=== PATIENT | male | born 1955 | race Two or more races ===

== ENCOUNTER 2017-05-04 16:15 | Inpatient (IN) | payer MEDICARE, OTHER ==
[~2017-05-04] VITALS: Ht 177.8 cm; Wt 89.0 kg
[2017-05-04] MEDS ORDERED: SODIUM CHLORIDE 0.9% 1,000 ML IVB ONE (16:55)
[2017-05-04] MEDS ORDERED: LORazepam 2MG/ML-1ML VIAL IV ONE (17:00)
[2017-05-04] MEDS ORDERED: diphenhdrAMINE HCL 50 MG/1 ML VL IV ONE (17:00)
[2017-05-04 18:24] LABS: Alanine Aminotransferase 14 U/L (16-61); Anion Gap 11 (5-15); Aspartate Aminotransferase 17 U/L (15-37); BUN/Creatinine Ratio 12.5; Blood Alcohol < 3.0 mg/dL (0-5); Blood Urea Nitrogen 38 mg/dL (7-18); Calcium 8.4 mg/dL (8.5-10.1); Carbon Dioxide 21 mmol/L (21-32); Chloride 107 mmol/L (98-107); GFR African American 27 mL/min; GFR Non-African American 22 mL/min; Glucose 74 mg/dL (74-106); Potassium 4.2 mmol/L (3.5-5.1); Sodium 139 mmol/L (136-145)
[2017-05-04 18:25] LABS: Basophils # (auto) 0 uL; Basophils % (auto) 0.4 % (0.0-2.0); Eosinophils # (auto) 0.1 uL; Hemoglobin 12.5 g/dL (13.5-17.5); Mean Corpuscular Hgb Conc. 33.7 g/dL (32.0-36.0); Monocytes # (auto) 0.2 uL; Monocytes % (auto) 4.9 % (0.0-12.0); Neutrophils # (auto) 2.7 uL; Red Cell Distribution Width 14.4 % (11.8-14.3); White Blood Cell 3.9 10^3/uL (4.4-10.8)
[2017-05-04 18:27] LABS: Alkaline Phosphatase 57 U/L (45-117); Bilirubin, Total 0.5 mg/dL (0.2-1.0); Eosinophils % (auto) 3.3 % (0.0-7.0); Lymphocytes # (auto) 0.9 uL; Lymphocytes % (auto) 21.7 % (10.0-50.0); Mean Corpuscular Hemoglobin 29.2 pg (28.0-32.0); Mean Corpuscular Volume 86.8 fL (80.0-100.0); Neutrophils % (auto) 69.7 % (37.0-80.0); Nucleated Red Blood Cells % 0.3 %; Platelet Count (auto) 28 10^3/uL (140-450); Red Blood Cells 4.27 10^6/uL (4.5-5.90); Total Protein 7.5 g/dL (6.4-8.2)
[2017-05-04 18:29] LABS: Salicylate < 1.7 mg/dL (2.8-20.0)
[2017-05-04 18:34] LABS: Acetaminophen < 2.0 ug/mL (10-30)
[2017-05-04 18:35] LABS: Blood Alcohol < 3.0 mg/dL (0-5); Magnesium 2.6 mg/dL (1.6-2.6)
[2017-05-04] MEDS ORDERED: SITA50TA28 PO (18:39)
[2017-05-04] MEDS ORDERED: CLOP75TA41 PO (18:39)
[2017-05-04] MEDS ORDERED: FURO40TA4 PO (18:39)
[2017-05-04] MEDS ORDERED: GABA300C10 PO (18:39)
[2017-05-04] MEDS ORDERED: POTA10TA51 PO (18:39)
[2017-05-04] MEDS ORDERED: LOSA50TA6 PO (18:39)
[2017-05-04] MEDS ORDERED: PANT40TA2 PO (18:39)
[2017-05-04] MEDS ORDERED: ALPR0.5T7 PO (18:39)
[2017-05-04] MEDS ORDERED: RIFA550T PO (18:39)
[2017-05-04] MEDS ORDERED: MORPHINE SULFATE 10 MG/ML INJ 1ML SDV IV PRN ×2 (19:00)
[2017-05-04] MEDS ORDERED: NITROGLYCERIN 0.4 MG SL TAB SL PRN (19:00)
[2017-05-04] MEDS: LACTULOSE 20Gm/30ML SOLN PO SCH ×2 (19:00→22:09)
[2017-05-04] MEDS ORDERED: DOCUSATE SOD 100 MG CAP PO PRN (19:00)
[2017-05-04] MEDS ORDERED: METOCLOPRAMIDE HCL 5MG/ml INJ 2ml VIAL IV PRN (19:00)
[2017-05-04] MEDS ORDERED: LORazepam 0.5 MG TAB PO PRN (19:00)
[2017-05-04] MEDS ORDERED: ALPRAZolam 0.5 MG TAB PO PRN (19:00)
[2017-05-04] MEDS ORDERED: HYDROcodone-ACET 5/325MG TAB PO PRN (19:00)
[2017-05-04] MEDS ORDERED: ONDANSETRON HCL 4 MG/2 ML VIAL IV PRN (19:00)
[2017-05-04] MEDS ORDERED: ALUM & MAG HYDROX-SIMETH LIQ(MAALOX) 30 ML PO PRN (19:00)
[2017-05-04] MEDS ORDERED: ACETAMINOPHEN 325 MG TAB PO PRN (19:00)
[2017-05-04 21:30] VITALS: BP 94/64
[2017-05-04] MEDS: GABAPENTIN 300 MG CAP PO SCH (22:09)
[2017-05-04] MEDS: RIFAXIMIN 550 MG TAB PO SCH (22:10)
[2017-05-04 22:20] VITALS: BP 94/64
[2017-05-05 04:43] VITALS: BP 106/64
[2017-05-05 05:08] LABS: Urine Bacteria None Seen /hpf (None Seen); Urine WBC None Seen /hpf (0 - 3)
[2017-05-05] MEDS: LACTULOSE 20Gm/30ML SOLN PO SCH ×3 (06:08→21:07)
[2017-05-05] MEDS: GABAPENTIN 300 MG CAP PO SCH ×3 (06:09→21:07)
[2017-05-05] MEDS: LOSARTAN POTASSIUM 50 MG TAB PO SCH (06:09)
[2017-05-05 06:33] LABS: Alcohol, Urine < 3.0 mg/dL (0-5); Amphetamine Screen, Urine NEGATIVE (NEGATIVE); Barbiturate Scree,Urine NEGATIVE (NEGATIVE); Benzodiazephine Screen, Urine POSITIVE (NEGATIVE); Cannabinoid Screen, Urine NEGATIVE (NEGATIVE); Cocaine Screen, Urine NEGATIVE (NEGATIVE); Opiate Scree,Urine POSITIVE (NEGATIVE); Phencyclidine Screen, Urine NEGATIVE (NEGATIVE)
[2017-05-05 08:00] VITALS: BP 121/82
[2017-05-05 08:06] LABS: Basophils # (auto) 0 uL; Eosinophils # (auto) 0.1 uL; Hemoglobin 12.3 g/dL (13.5-17.5); Lymphocytes # (auto) 0.9 uL; Monocytes # (auto) 0.4 uL; Nucleated Red Blood Cells % 0.2 %
[2017-05-05 08:08] LABS: Basophils % (auto) 0.2 % (0.0-2.0); Eosinophils % (auto) 1.4 % (0.0-7.0); Hematocrit 35.9 % (41.0-53.0); Lymphocytes % (auto) 13.8 % (10.0-50.0); Mean Corpuscular Hemoglobin 29.9 pg (28.0-32.0); Mean Corpuscular Hgb Conc. 34.3 g/dL (32.0-36.0); Mean Corpuscular Volume 87.3 fL (80.0-100.0); Monocytes % (auto) 5.6 % (0.0-12.0); Neutrophils # (auto) 5.2 uL; Platelet Count (auto) 27 10^3/uL (140-450); Red Blood Cells 4.12 10^6/uL (4.5-5.90); Red Cell Distribution Width 14.3 % (11.8-14.3); White Blood Cell 6.6 10^3/uL (4.4-10.8)
[2017-05-05 08:46] LABS: BUN/Creatinine Ratio 15.1; Bilirubin, Total 0.9 mg/dL (0.2-1.0); Calcium 8.4 mg/dL (8.5-10.1); Potassium 4.3 mmol/L (3.5-5.1); Total Protein 7.2 g/dL (6.4-8.2)
[2017-05-05 09:01] LABS: Urine Specific Gravity 1.014 (1.001-1.035)
[2017-05-05 09:02] LABS: Urine Blood Negative /uL (Negative)
[2017-05-05] MEDS: RIFAXIMIN 550 MG TAB PO SCH (10:00)
[2017-05-05] MEDS: POTASSIUM CHL 20 Meq TABLET PO SCH (10:58)
[2017-05-05] MEDS: CLOPIDOGREL BISULFATE 75 MG TAB PO SCH (10:59)
[2017-05-05] MEDS: PANTOPRAZOLE 40 MG TAB PO SCH (10:59)
[2017-05-05] MEDS: FUROSEMIDE 40 MG TAB PO SCH (11:02)
[2017-05-05 20:00] VITALS: BP 95/66
[2017-05-05 22:02] VITALS: BP 95/66
[2017-05-06 05:00] VITALS: BP 97/60
[2017-05-06] MEDS: LACTULOSE 20Gm/30ML SOLN PO SCH ×3 (06:19→21:35)
[2017-05-06] MEDS: LOSARTAN POTASSIUM 50 MG TAB PO SCH (06:19)
[2017-05-06] MEDS: GABAPENTIN 300 MG CAP PO SCH ×3 (06:20→21:35)
[2017-05-06 09:00] VITALS: BP 97/62
[2017-05-06] MEDS: CLOPIDOGREL BISULFATE 75 MG TAB PO SCH (10:18)
[2017-05-06] MEDS: PANTOPRAZOLE 40 MG TAB PO SCH (10:18)
[2017-05-06] MEDS: POTASSIUM CHL 20 Meq TABLET PO SCH (10:18)
[2017-05-06] MEDS: FUROSEMIDE 40 MG TAB PO SCH (10:19)
[2017-05-06] MEDS ORDERED: HYDR-4683 PO (11:22)
[2017-05-06] MEDS ORDERED: MORP1TAB12 PO (11:22)
[2017-05-06 13:00] VITALS: BP 90/53
[2017-05-06 17:00] VITALS: BP 110/69
[2017-05-06] MEDS ORDERED: CITA10TA59 PO (17:23)
[2017-05-06 22:00] VITALS: BP 117/74
[2017-05-07 05:17] VITALS: BP 113/70
[2017-05-07] MEDS: LACTULOSE 20Gm/30ML SOLN PO SCH ×2 (06:10→14:00)
[2017-05-07] MEDS: GABAPENTIN 300 MG CAP PO SCH ×2 (06:10→15:52)
[2017-05-07] MEDS: LOSARTAN POTASSIUM 50 MG TAB PO SCH (06:11)
[2017-05-07 09:00] VITALS: BP 110/76
[2017-05-07] MEDS: PANTOPRAZOLE 40 MG TAB PO SCH (11:25)
[2017-05-07] MEDS: FUROSEMIDE 40 MG TAB PO SCH (11:25)
[2017-05-07] MEDS: CLOPIDOGREL BISULFATE 75 MG TAB PO SCH (11:25)
[2017-05-07] MEDS: POTASSIUM CHL 20 Meq TABLET PO SCH (11:25)
[2017-05-07 13:00] VITALS: BP 120/77
[2017-05-07 21:00] VITALS: BP 112/78
[2017-05-07 21:08] VITALS: BP 112/78
== END 2017-05-07 21:37 | disposition home health service (06) | DRG 917 ==
LOC: ER 16:25 → OVERFLOW 16:26 → WEST WING 21:41
PROVIDERS: ADMIT Internal Medicine; ATTEND Internal Medicine
DX: T40.2X1A Poisoning by other opioids, accidental (unintentional), initial encounter (principal); G93.41 Metabolic encephalopathy; K74.60 Unspecified cirrhosis of liver; F32.9 Major depressive disorder, single episode, unspecified; I25.10 Atherosclerotic heart disease of native coronary artery without angina pectoris; E11.9 Type 2 diabetes mellitus without complications; G89.29 Other chronic pain; K59.00 Constipation, unspecified; F41.9 Anxiety disorder, unspecified; I10 Essential (primary) hypertension; M54.9 Dorsalgia, unspecified; I25.2 Old myocardial infarction; Z79.899 Other long term (current) drug therapy; Y92.89 Other specified places as the place of occurrence of the external cause
CPT/HCPCS: 36415; 80053; 80307; 80320; 80329; 81001; 82140; 83735; 85025; 87081; 93005; 94761; 96361; 96374; 96375; 99291